=== PATIENT | female | born 1950 | race Caucasian/White ===

== ENCOUNTER 2016-10-17 20:27 | Emergency (ER) | payer OTHER ==
[2016-10-17] MEDS ORDERED: ONDANSETRON 4 MG/2 ML VIAL ONE (20:45)
[2016-10-17] MEDS ORDERED: NS 1,000 ML IV ONE (20:55)
[2016-10-17] MEDS ORDERED: ONDANSETRON 4 MG/2 ML VIAL IVP ONE (20:55)
[2016-10-17] MEDS ORDERED: ONDANSETRON 4MG PREPACK#2 BTL TAKEHOME ONE (21:31)
--- NOTE | 2016-10-17 21:52 | EDPHY ---
H & P Time Seen by Provider: 10/17/16 21:39 HPI/ROS: CHIEF COMPLAINT: Nausea vomiting and headache HISTORY OF PRESENT ILLNESS: 66-year-old woman visiting from [place] for graduation started getting sick yesterday. Slow onset not thunderclap in onset of headache which is frontal and not worst of life associated with nausea and vomiting and inability to take oral. Symptoms today were severe. Not associated with abdominal pain or trauma or fever. No ataxia or difficulty walking and no confusion. REVIEW OF SYSTEMS: Eye: no change in vision ENT: no sore throat, no earache or facial pain. Cardiac: no chest pain or syncope Pulmonary: no cough or SOB Abdomen: HPI Musculoskeletal: no back pain Skin: no rash Neuro: HPI, no neck pain. Constitutional: no fever : no urinary symptoms A comprehensive 10 point review of systems is otherwise negative aside from elements mentioned in the history of present illness. PAST MEDICAL HISTORY: Includes depression, hysterectomy, hip replacement. Social history: Visiting from [place] General Appearance: Alert and conversant, cooperative. Eyes: No scleral icterus. ENT, Mouth: Normal mucous membranes. Extraocular motion intact, no proptosis, no facial swelling or tenderness. Respiratory: Normal respiratory effort, breath sounds equal, lungs are clear to auscultation. Cardiovascular: Regular rate and rhythm. Gastrointestinal: Abdomen is soft and non tender. Neurological: Alert and oriented x3. Normally conversant. Face symmetric, normal movement and sensation in all extremities. Normal [id number]-lyxy bilaterally and no pronator drift. Speech fluent. Skin: Warm and dry, no rashes. Musculoskeletal: Normal range of motion of the neck. Psychiatric: Not agitated. Emergency Department course/MDM: Patient has nausea and vomiting and headache likely exacerbated by dehydration. At the time I see her she has already received hydration and antiemetics and feels better. She does not have nausea anymore. Her headache is essentially resolved. She wants to go home. Smoking Status: Never smoked Constitutional: Initial Vital Signs Temperature (C) 36.3 C 10/17/16 20:28 Heart Rate 65 10/17/16 20:28 Respiratory Rate 18 10/17/16 20:28 Blood Pressure 149/87 H 10/17/16 20:28 O2 Sat (%) 96 10/17/16 20:28 O2 Delivery Mode Room Air Allergies/Adverse Reactions: azithromycin [From Zithromax] Allergy (Verified 10/17/16 20:32) bupropion [From Wellbutrin] Allergy (Verified 10/17/16 20:32) Home Medications: Medication Instructions Recorded Amitriptyline HCl 10/17/16 Fish Oil 10/17/16 HCTZ (*) 10/17/16 Lamictal 10/17/16 Zoloft 100mg (*) 10/17/16 MDM/Departure - MDM Medications Given: Discontinued Medications Sodium Chloride (Ns) 1,000 mls @ 0 mls/hr IV ONCE ONE PRN Reason: Wide Open Stop: 10/17/16 20:56 Last Admin: 10/17/16 20:57 Dose: 1,000 mls Ondansetron HCl (Zofran) 4 mg IVP EDNOW ONE Stop: 10/17/16 20:56 Last Admin: 10/17/16 20:58 Dose: 4 mg - Depart Disposition: Home, Routine, Self-Care Clinical Impression: Nausea & vomiting Qualifiers: Vomiting type: unspecified Vomiting Intractability: non-intractable Qualified Code(s): R11.2 - Nausea with vomiting, unspecified Headache Qualifiers: Headache type: unspecified Headache chronicity pattern: unspecified pattern Intractability: not intractable Qualified Code(s): R51 - Headache Condition: Good Instructions: Acute Nausea and Vomiting (ED) Referrals: PT,UNSURE [Other] - As per Instructions (Your PCP in [place]) Mily Guerrero MD [Medical Doctor] - As per Instructions
[2016-10-17 21:57] VITALS: BP 124/78; PULSE 70; RESP 14; TEMP 97.9; O2SAT 94
== END 2016-10-17 21:56 | disposition home or self-care (01) ==
DX: R11.2 Nausea with vomiting, unspecified (principal); R51 Headache
CPT/HCPCS: 96374; J2405